=== PATIENT | male | born 1935 | race Caucasian/White ===

== ENCOUNTER 2024-03-15 15:42 | Emergency (ER) | payer OTHER, SELFPAY ==
[2024-03-15 15:44] VITALS: BP 180/96
[2024-03-15 16:23] LABS: % Basophils 0.5 % (0-2); % Eosinophils 1.1 % (0-6); % Immature Granulocytes 0.5 % (0-0.5); % Lymphocytes 25.7 % (20.5-51.1); % Monocytes 9.1 % (1.7-9.3); % Neutrophils 63.1 % (42.2-75.2); Absolute Eosinophils 0.1 10^3/uL (0-0.7); Absolute Lymphocytes 1.7 10^3/uL (1.2-3.4); Absolute Monocytes 0.6 10^3/uL (0.1-0.6); Absolute Neutrophils 4.2 10^3/uL (1.4-6.5); Hematocrit 36.1 % (39.0-52.0); Hemoglobin 11.9 g/dL (13.0-18.0); Mean Corpuscular Hgb 28.1 pg (27.0-31.0); Mean Corpuscular Volume 85.1 fL (80.0-94.0); Mean Platelet Volume 10.4 fL (7.4-10.4); Nucleated Red Blood Cells % 0 % (-); Platelet Count 235 10^3/uL (130-400); Red Blood Cell Count 4.24 10^6/uL (4.70-6.10); Red Cell Dist. Width 15.8 % (11.5-14.5); White Blood Cell Count 6.6 10^3/uL (4.8-10.8)
[2024-03-15 16:34] LABS: ALT (SGPT) 12 U/L (0-50); AST (SGOT) 21 U/L (17-59); Albumin 4.5 g/dl (3.5-5.0); Alkaline Phosphatase 111 U/L (38-126); Blood Urea Nitrogen 15 mg/dl (9-20); Calcium 9.8 mg/dl (8.4-10.2); Carbon Dioxide 27 mmol/L (22-30); Chloride 102 mmol/L (98-107); Glucose 96 mg/dl (70-99); Sodium 140 mmol/L (135-145); Total Bilirubin 0.7 mg/dl (0.2-1.3); Total Protein 7.5 g/dl (6.3-8.2); eGFR > 60.00
[2024-03-15 16:45] LABS: Troponin I < 0.012 ng/ml
[2024-03-15 16:46] LABS: Urine Albumin Trace (Neg - Trace); Urine Bilirubin Negative (Negative); Urine Character Clear (Clear); Urine Color Yellow; Urine Glucose Negative (Negative); Urine Ketone Negative (Negative); Urine Leukocyte 2+ (Negative); Urine Nitrite Positive (Negative); Urine Occult Blood Negative (Negative); Urine Specific Gravity 1.015 (<1.030); Urine Urobilinogen Negative (Neg - 1+)
[2024-03-15 17:34] LABS: Urine Bacteria Many (Negative); Urine Red Blood Cell 0-2 /HPF (0-2); Urine White Cell 16-20 /HPF (0-5)
[2024-03-15 18:38] VITALS: BP 190/90
[2024-03-15 19:10] VITALS: BMI 21.6
--- NOTE | 2024-03-15 19:11 | ED.GENMED ---
History of Present Illness
General
Chief Complaint: Abdominal Pain
Source: patient and family (Son)
Exam Limitations: none
Time Seen by Provider: 03/15/24 19:08
History of Present Illness
History of Present Illness:
This is a 88 year old male that comes in with c/o abd pain. States that he went to see the PCP today as he was having abd pain after eating all day. States that the PCP did an ECG at the office and told them he would feel better if he came in to be
evaluated. Patient states that he had a BM since he was here and not his pain is gone. States that he has been SOB. Denies any fever, chills, chest pain, nausea, vomiting, diarrhea, headache, dizziness, urinary burning.
Past History
Past History
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
ED Past Surgical History: Cardiac (Triple bypass) and Cholecystectomy
Social History
Tobacco: Former smoker
Alcohol: Occasional
Personal:
Living: with family
Review of Systems
Review of Systems
All Other Systems: ROS reviewed and negative except as documented in HPI and ROS
Constitutional: Reports no symptoms; Denies fever or chills
EENT: Reports no symptoms
Respiratory: Reports trouble breathing; Denies cough
Cardiac: Denies chest pain
ABD/GI: Reports abdominal pain; Denies nausea, vomiting or diarrhea
: Reports no symptoms; Denies dysuria, frequency or urgency
Musculoskeletal: Reports no symptoms
Skin: Reports no symptoms
Neurological: Reports no symptoms; Denies dizzy or headache
Psychiatric: Reports no symptoms
Phy Exam
General Physical Exam
General Presentation: well appearing and no apparent distress
General age: appears stated age
General Skin: warm and dry
General Habitus: elderly
General Mental: alert
General Hydration: appears well hydrated
ENT Exam
ENT Exam: TM's normal, pharynx normal and neck supple
Eye Exam
Eye Exam: EOMI
Cardiovascular Exam
Cardiovascular Exam: no edema, irregularly irregular and other (Murmur)
Pulmonary Exam
Pulmonary Exam: lungs clear, no respiratory distress, no rales, chest non tender, no crackles, no rhonchi, no wheezing and no cough
Gastrointestinal Exam
Gastrointestinal Exam: normal bowel sounds, non tender, soft, no organomegaly, no pulsatile mass and non distended
Musculoskeletal Exam
Musculoskeletal Exam: full ROM and no edema
Skin Exam
Skin Exam: normal color, warm/dry, no rash and no petechia
Psychiatric Exam
Psychiatric Exam: normal mood/affect
Course
Orders/Labs/Results
Orders:
Orders
03/15/24 15:47
Electrocardiogram (*1) Urgent
Reason for Study: Chest Pain
EKG- Treatment ONCE
03/15/24 16:02
Complete Blood Count/With Diff Urgent
Comprehensive Metabolic Panel Urgent
Lipase Urgent
Comment: ADDON
Troponin I Urgent
03/15/24 16:07
Urinalysis Reflex To Culture Urgent
Date Specimen was Collected: 03/15/24
Time Specimen was Collected: 15:56
Urine Microscopic Reflex Cult Urgent
Urine Culture Urgent
HANG Source: U
Specimen Description:
Date Specimen was Collected: 03/15/24
Time Specimen was Collected: 15:56
03/15/24 19:10
Add On- LAB Urgent
Tests Added?: Lipase
03/15/24 19:35
Cephalexin Monohydrate [Keflex] 500 mg PO NOW STA
03/15/24 19:37
CR Chest - 2 Views Urgent
Comment:
Reason For Exam: SOB
Abnormal Lab Results
03/15/24 03/15/24
16:02 16:07
RBC 4.24 L 10^6/uL
(4.70-6.10)
Hgb 11.9 L g/dL
(13.0-18.0)
Hct 36.1 L %
(39.0-52.0)
RDW 15.8 H %
(11.5-14.5)
Urine Nitrite (Reflex) Positive A
(Negative)
Leukocyte Esterase Rfl 2+ A
(Negative)
Urine WBC (Reflex) 16-20 A /HPF
(0-5)
Urine Bacteria (Reflex) Many A
(Negative)
03/15/24 16:02
03/15/24 16:02
H/H slightly low. Urine positive for infection. Troponin <0.012
Vital Signs
Initial and Last Documented VS:
Initial Vital Signs
Temp Pulse Resp BP Pulse Ox
98 F 62 16 180/96 99
03/15/24 15:44 03/15/24 15:44 03/15/24 15:44 03/15/24 15:44 03/15/24 15:44
Last Documented Vital Signs
Temp Pulse Resp BP Pulse Ox
97.5 F 70 18 165/95 98
03/15/24 18:38 03/15/24 19:13 03/15/24 19:13 03/15/24 19:13 03/15/24 19:13
MDM/Problems Addressed
Differential Diagnosis Includes:
Gastritis, UTI, Constipation
MDM/Problems Addressed:
This is a 88 year old male that comes in with c/o having upper abd discomfort since breakfast. Patient went to see the PCP and he sent him in for evaluation. Patient states that since then he had a BM and his pain is gone.
Will check labs. Chest x-ray and Urine.
Explained to patient that he dose have a UTI and he will be started on an antibiotic. Will check chest x-ray and discharge home.
Chronic conditions affecting care: CAD
Acute Exacerbation and/or Progression of Chronic Illness:
NA
*Radiology
Radiology exam reviewed: radiology read reviewed (Chest-No acute disease of the chest. )
*Pulse Oximetry
Patient hypoxic: no
*EKG
Interpreted by ED Provider?: Yes
Heart Rate: 71
Rate: normal
Rhythm: a-fib
[place]: normal axis
QRS Pattern: normal QRS
Ischemia: non-specific ST changes (V4, V4, V6)
*Pressure Steamer Tender Interpretation
Rate: Pressure Steamer Tender- N/A
*Critical Care Note
Total Time (30-74mins, 75-104mins- exclusive of procedures): Not Applicable
ED Attending Note
-
Portions of this chart may have been created with voice recognition software.� Occasional wrong word or��sound alike� substitutions may have occurred due to the inherent limitations of voice recognition software.
Discharge Plan
Departure
Patient Disposition: Home (Routine Discharge)
Date of Disposition: 03/15/24
Time of Disposition: 20:41
Patient with high blood pressure during this ER visit?: Yes
Condition: Good
Covid-19: Not Applicable
Discharge Problem:
Acute UTI (urinary tract infection)
Instructions: Urinary Tract Infection, Adult ED, BLOOD PRESSURE
Prescriptions:
New
cephalexin 500 mg capsule
500 mg PO BID 7 Days Qty: 14 0RF
No Action
losartan 50 MG tablet
50 mg PO DAILY
atorvastatin 20 MG tablet
20 mg PO DAILY
apixaban [Eliquis] 5 MG tablet
5 mg PO BID
hydralazine 50 MG tablet
50 mg PO BID
Referrals:
Beltran Pink, [Family Provider] - Call in 1-3 days for appt
Activity Restrictions/Additional Instructions:
As discussed, your urine shows that you have infection. Your chest X-ray is normal. You have been started on an antibiotic here and a prescription has been sent to your Pharmacy. Please take as directed. Please increase your water intake to 8-8oz
glasses daily. Follow up with the family doctor for recheck. IF YOU HAVE ABDOMINAL PAIN, CHEST PAIN, OR YOU HAVE ANY OTHER CONCERNS PLEASE RETURN TO THE EMERGENCY ROOM.
Interventions
Interventions:
*Risk Screen - Suicide Last Done: 03/15/24 19:11
*General Assessment Last Done: 03/15/24 19:11
*Neglect/Abuse Screening Last Done: 03/15/24 19:11
KO-Bikwar-Jjeriwwqql Assessment Last Done: 03/15/24 19:14
Discharge Date and Time
Print Language: SAMI
[2024-03-15 19:13] VITALS: BP 165/95
[2024-03-15 20:28] LABS: Lipase 134 U/L (23-300)
[2024-03-15] MEDS: KEFLEX 500 MG PO (20:51)
== END 2024-03-15 20:55 | disposition home or self-care (01) ==
LOC: EMR 15:42
PROVIDERS: Emergency Medicine; EMERGENCY PHYSICIAN Emergency Medicine; FAMILY PHYSICIAN Family Medicine
DX: N39.0 Urinary tract infection, site not specified (principal); I48.91 Unspecified atrial fibrillation; I25.10 Atherosclerotic heart disease of native coronary artery without angina pectoris; K21.9 Gastro-esophageal reflux disease without esophagitis; I10 Essential (primary) hypertension; E78.00 Pure hypercholesterolemia, unspecified; Z86.73 Personal history of transient ischemic attack (TIA), and cerebral infarction without residual deficits; Z87.891 Personal history of nicotine dependence; Z90.49 Acquired absence of other specified parts of digestive tract
CPT/HCPCS: 99283; 71046; 80053; 81003; 81015; 83690; 84484; 85025; 87086; 93005

== ENCOUNTER 2024-08-17 11:28 | Emergency (ER) | payer OTHER, SELFPAY ==
[2024-08-17 11:44] VITALS: BP 108/64
--- NOTE | 2024-08-17 12:17 | ED.GENMED ---
History of Present Illness
General
Chief Complaint: Abdominal Symptoms
Time Seen by Provider: 08/17/24 12:17
History of Present Illness
History of Present Illness:
TIME OF INITIAL ENCOUNTER: 12:20 PM
HPI: 3 days ago, the patient developed nausea, vomiting, and diarrhea. Last night he was given Lomotil. He is now somewhat improved. He never had any abdominal pain. He has not been on antibiotics recently.
EXAM:
GENERAL: Well appearing in no distress
HEENT: Slightly dry yeah oral mucosa
CARDIOVASCULAR: No murmurs, normal heart rate, regular rhythm, No chest wall tenderness
PULMONARY: No respiratory distress, breath sounds are clear and equal
ABDOMEN: Soft with no peritoneal signs, no tenderness
NEUROLOGIC: Excellent strength all extremities, no coordination deficits
PSYCHIATRIC: Appropriate mental status, normal insight and judgement
EXTREMITIES: Nontender, no edema, moves all extremities equally
SKIN: No rash, no lesions
NUMBER AND COMPLEXITY OF PROBLEMS ADDRESSED AT THE ENCOUNTER
� Chronic conditions affecting care: CAD, high blood pressure, hyperlipidemia
� Acute Exacerbation and/or Progression of Chronic Illness: This is an acute problem
� Differential Diagnosis includes: Foodborne illness, viral gastroenteritis, NNEKA, dehydration
AMOUNT AND/OR COMPLEXITY OF DATA TO BE REVIEWED AND ANALYZED
� I performed an independent evaluation of and my interpretation is:
EKG:
CT:
X-rays:
Laboratory Studies: White count is normal, hemoglobin 10.3, bicarb 21 and BUN is slightly elevated.
Other:
� Review of other/old records: I reviewed records, the patient was seen in the emergency department in February 2024 for diagnosed with a UTI (however culture showed mixed jethro)
� Clinical information was obtained by an independent historian: I spoke to son and daughter at bedside
� Prescriptions/Medications Considered but not given:
� Further testing considered but not performed: Considered CT of the abdomen pelvis however the patient has no abdominal tenderness on examination and feels excellent on reevaluation.
RISK OF COMPLICATIONS AND/OR MORBIDITY OR MORTALITY OF PATIENT MANAGEMENT
� Social determinants of health affecting care: Lives at home
� Discussion with other providers:
� Escalation of care including admission/observation vs risk of discharge considered: The patient was given a 500 mL fluid bolus. Slightly low bicarb and slightly elevated BUN suggestive of very mild dehydration. His renal
function was normal. After fluids, family happy with how he appears 'his color is back'. The patient has virtually no symptoms and is eager to go home.
ANY OTHER UPDATES:
Past History
Past History
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
ED Past Surgical History: Cardiac (Triple bypass) and Cholecystectomy
Social History
Tobacco: Former smoker
Alcohol: Occasional
Personal:
Living: with family
Phy Exam
Physical Exam
Physical Exam:
See HPI
Course
Orders/Labs/Results
Orders:
Orders
08/17/24 12:18
0.9% Sodium Chloride 500 ml [Nss] 500 ml IV BOLUS
08/17/24 12:35
Complete Blood Count/With Diff Urgent
Comprehensive Metabolic Panel Urgent
Lipase Urgent
Abnormal Lab Results
08/17/24
12:35
RBC 3.64 L 10^6/uL
(4.70-6.10)
Hgb 10.3 L g/dL
(13.0-18.0)
Hct 31.6 L %
(39.0-52.0)
MCHC 32.6 L g/dL
(33.0-37.0)
RDW 16.3 H %
(11.5-14.5)
MPV 11.0 H fL
(7.4-10.4)
Absolute Lymphs (auto) 0.8 L 10^3/uL
(1.2-3.4)
Immature Gran % 0.6 H %
(0-0.5)
Lymphocytes % 15.8 L %
(20.5-51.1)
Carbon Dioxide 21 L mmol/L
(22-30)
BUN 29 H mg/dl
(9-20)
08/17/24 12:35
08/17/24 12:35
Vital Signs
Initial and Last Documented VS:
Initial Vital Signs
Temp Pulse Resp BP Pulse Ox
36.3 C 84 18 108/64 100
08/17/24 11:44 08/17/24 11:44 08/17/24 11:44 08/17/24 11:44 08/17/24 11:44
Last Documented Vital Signs
Temp Pulse Resp BP Pulse Ox
36.3 C 78 16 137/79 99
08/17/24 11:44 08/17/24 12:45 08/17/24 12:30 08/17/24 13:00 08/17/24 13:30
*Critical Care Note
Total Time (30-74mins, 75-104mins- exclusive of procedures): Not Applicable
ED Attending Note
-
Portions of this chart may have been created with voice recognition software.� Occasional wrong word or��sound alike� substitutions may have occurred due to the inherent limitations of voice recognition software.
Discharge Plan
Departure
Patient Disposition: Home (Routine Discharge)
Date of Disposition: 08/17/24
Time of Disposition: 13:56
Patient with high blood pressure during this ER visit?: Yes
Discharge Problem:
Nausea, vomiting, and diarrhea
Instructions: Nausea and Vomiting, Adult (DC)
Prescriptions:
No Action
losartan 50 MG tablet
50 mg PO DAILY
atorvastatin 20 MG tablet
20 mg PO DAILY
apixaban [Eliquis] 5 MG tablet
5 mg PO BID
hydralazine 50 MG tablet
50 mg PO BID
cephalexin 500 mg capsule
500 mg PO BID 7 Days Qty: 14 0RF
Referrals:
Joesph Sanders, DO [Family Provider] -
Activity Restrictions/Additional Instructions:
The cause of your symptoms is unclear but could be related to a foodborne illness or a viral gastroenteritis. You have no tenderness on examination and your white blood cell count is normal. Your liver and pancreas numbers were normal. Your
bicarbonate level is just slightly low and your BUN is slightly high which can be seen with some degree of dehydration. We did give you some IV fluids here. Return here if worse or other concerns.
Interventions
Interventions:
*Risk Screen - Suicide Last Done: 08/17/24 11:44
*General Assessment Last Done: 08/17/24 11:44
*Neglect/Abuse Screening Last Done: 08/17/24 11:44
*ED- Fall Risk Assessment Last Done: 08/17/24 12:35
*ED COVID-19 Vaccine History Last Done: 08/17/24 12:35
IH-Dgggsh-Fsjnyfljjt Assessment Last Done: 08/17/24 12:35
Discharge Date and Time
Print Language: MOLDOVAN
[2024-08-17 12:36] VITALS: BP 137/76
[2024-08-17] MEDS: NSS 500 IV (12:39)
[2024-08-17 12:52] LABS: % Basophils 0.2 % (0-2); % Immature Granulocytes 0.6 % (0-0.5); % Lymphocytes 15.8 % (20.5-51.1); % Monocytes 8.3 % (1.7-9.3); % Neutrophils 75.1 % (42.2-75.2); Absolute Lymphocytes 0.8 10^3/uL (1.2-3.4); Absolute Monocytes 0.4 10^3/uL (0.1-0.6); Hematocrit 31.6 % (39.0-52.0); Hemoglobin 10.3 g/dL (13.0-18.0); Mean Corp Hgb Conc. 32.6 g/dL (33.0-37.0); Mean Corpuscular Hgb 28.3 pg (27.0-31.0); Mean Corpuscular Volume 86.8 fL (80.0-94.0); Nucleated Red Blood Cells % 0 % (-); Platelet Count 194 10^3/uL (130-400); Red Blood Cell Count 3.64 10^6/uL (4.70-6.10); Red Cell Dist. Width 16.3 % (11.5-14.5); White Blood Cell Count 5.3 10^3/uL (4.8-10.8)
[2024-08-17 13:00] VITALS: BP 137/79
[2024-08-17 13:14] LABS: ALT (SGPT) 11 U/L (0-50); AST (SGOT) 19 U/L (17-59); Albumin 3.6 g/dl (3.5-5.0); Alkaline Phosphatase 80 U/L (38-126); Blood Urea Nitrogen 29 mg/dl (9-20); Carbon Dioxide 21 mmol/L (22-30); Chloride 104 mmol/L (98-107); Glucose 93 mg/dl (70-99); Lipase 53 U/L (23-300); Potassium 3.6 mmol/L (3.5-5.1); Sodium 135 mmol/L (135-145); Total Bilirubin 0.6 mg/dl (0.2-1.3); Total Protein 6.4 g/dl (6.3-8.2); eGFR > 60.00
== END 2024-08-17 14:07 | disposition home or self-care (01) ==
LOC: EMR 11:28
PROVIDERS: EMERGENCY PHYSICIAN Emergency Medicine; FAMILY PHYSICIAN Family Medicine
DX: R11.2 Nausea with vomiting, unspecified (principal); R19.7 Diarrhea, unspecified; E78.00 Pure hypercholesterolemia, unspecified; I10 Essential (primary) hypertension; I25.10 Atherosclerotic heart disease of native coronary artery without angina pectoris; Z86.73 Personal history of transient ischemic attack (TIA), and cerebral infarction without residual deficits; Z87.891 Personal history of nicotine dependence; Z90.49 Acquired absence of other specified parts of digestive tract
CPT/HCPCS: 99284; 96360; 80053; 83690; 85025

== ENCOUNTER → 2024-09-07 12:26 | Outpatient (REF) | payer OTHER, SELFPAY | LOC: HWRAD 12:26 | PROVIDERS: ATTENDING PHYSICIAN Family Medicine | DX: M54.50 Low back pain, unspecified (principal) | CPT/HCPCS: 72110; 72190 ==

== ENCOUNTER 2024-12-09 15:33 | Inpatient (IN) | payer OTHER, SELFPAY ==
[2024-12-09] VITALS (9 sets, daily range): BP systolic 119–187; BP diastolic 64–93; BMI 20.7; BMI 19.8
[2024-12-09 12:28] LABS: Hematocrit 25.4 % (39.0-52.0); Hemoglobin 8.3 g/dL (13.0-18.0); Mean Corp Hgb Conc. 32.7 g/dL (33.0-37.0); Mean Corpuscular Volume 79.1 fL (80.0-94.0); Nucleated Red Blood Cells % 0 % (-); Platelet Count 286 10^3/uL (130-400); Red Cell Dist. Width 18.3 % (11.5-14.5)
--- NOTE | 2024-12-09 12:38 | ED.GENMED ---
History of Present Illness
General
Chief Complaint: Breathing Problem
Source: patient
Time Seen by Provider: 12/09/24 12:26
History of Present Illness
History of Present Illness:
89-year-old male presents to the emergency room complaining of shortness of breath. Patient has developed the shortness of breath over the course the past 3 or 4 days. He does have a mild cough. Patient had a recent hospitalization to [facility] where he had '5 infections' at the same time. He was then referred to [facility] for acute rehab. He was discharged from acute rehab doing fairly well until the past couple days. He has significant shortness of breath with
exertion. No fever.
Past History
Past History
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
ED Past Surgical History: Cardiac (Triple bypass) and Cholecystectomy
Social History
Tobacco: Former smoker
Alcohol: Occasional
Personal:
Living: with family
Phy Exam
Physical Exam
Physical Exam:
General: Awake, Alert, Oriented X3. Appears chronically ill, cachectic
Vitals: unremarkable
Head: Atraumatic
Eyes: Pupils equal, EOMI
Throat: Airway intact, no exudates
Neck: Trachea midline
Lungs: Decreased breath sounds throughout
Heart: Regular rate, 3/6 systolic ejection murmurs
Abd: Soft, Nontender, No pulsatile mass
Neuro: Nonfocal
Skin: Warm, dry, no rash
Extremities: pulses equal b/l, no edema
Scores
Heart Failure Risk
Heart Failure Risk Score: Yes
History of Stroke or TIA: No
History of intubation for respiratory distress: No
Heart rate on ED arrival >/= 110: No
SaO2 <90% on arrival on room air: Yes
HR >/=110 during 3min walk test (or too ill to perform test): No
ECG has acute ischemic changes: No
Urea >/=12mmol/L (BUN 33.6mg/dL): No
Serum CO2>/=35mmol/L: No
Troponin I or T elevated to [place] Level (0.4mg/dL): No
NT-proBNP >/=5,000ng/L (5,000pg/ml): Yes
HF Risk Score: 2
Admission Status: MEDIUM RISK 9.2% Consider observation or discharge to home with homecare & f/u visit to PCP/Home Theater Specialist, or SNF for treatment
Course
Orders/Labs/Results
Orders:
Orders
12/09/24 12:11
EKG [Electrocardiogram (*1)] Urgent
Reason for Study: Shortness of Breath
EKG- Treatment ONCE
12/09/24 12:19
Chest [CR Chest - 2 Views ] Urgent
Comment:
Reason For Exam: SOB/COUGH
12/09/24 12:20
CBC/With Diff [Complete Blood Count/With Diff] Urgent
CMP [Comprehensive Metabolic Panel] Urgent
12/09/24 12:37
Add On- LAB Urgent
Tests Added?: bnp, troponin
12/09/24 12:57
NT-proBNP Routine
Comment: ADD ON
Troponin I Routine
12/09/24 14:24
Ampicillin/Sulbactam 3 G [Unasyn] 3 gm 0.9% Sodium Chloride 100 ml [Nss] 100 ml IV NOW
12/09/24 14:30
Blood Culture Q30M
HANG Source: Blood/Venous
Specimen Description:
Blood Culture Q30M
HANG Source: Blood/Venous
Specimen Description:
12/09/24 Dinner
Cholesterol Lowering
At Your Request: Limited Participation
Fluid Restriction: 1440 mL/day (48 oz)
Cholesterol Lowering: Sodium, 2 Gram
12/09/24 15:12
Furosemide [Lasix] 40 mg IV NOW STA
12/09/24 15:15
COVID-19 Antigen Urgent
Source: Nasal Swab
12/09/24 15:20
Ampicillin/Sulbactam 3 G [Unasyn] 3 gm 0.9% Sodium Chloride 100 ml [Nss] 100 ml IV NOW
12/09/24 15:24
Admit/Transfer Patient As Directed
Co-Sign Provider:
Level of Care: Inpatient admission
Assign to:: Telemetry
Physician / Group: Kyung Quigley
Diagnosis: pneumonia, heart failure exacerbation
Reason for Telemetry: Pulmonary Edema
Date to Stop Telemetry: 12/12/24
Time to Stop Telemetry: 11:00
Reason for Hospitalization: pneumonia, heart failure exacerbation
Expected length of stay greater than two midnights?: Yes
ELOS- Estimated Length of Stay in days: 3
I certify the patient meets the requirements for IP care: Yes
PRN Pain Medication Management As Directed
May give lesser potent ordered pain med per pt: Yes
preference::
Protocol:: Medication orders for pain may be administered in a
manner that supports deferring to patient preference
when the pt is:
- Requesting an ordered lesser potent pain medication.
Least to most potent pain medications are defined
as: acetaminophen < NSAID < tramadol < opioids
(morphine, oxycodone, hydromorphone).
- Requesting a lesser dose of the same medication IF
ORDERED.
- Requesting a less intrusive route of administration
if both routes are prescribed by the provider (PO <
IV).
12/09/24 15:25
Code Status As Directed
Resuscitation Status: Do not resuscitate
Reached after discussion with pt or family/Healthcare POA: Yes
12/09/24 15:26
DNR Bracelet Application ONCE
12/09/24 16:59
Echo 2D MMode Color/Doppler Routine
Reason for Study: heart failure
CARDIOLOGY CONSULT Routine
Consulting Provider: Aamir Alfaro
Was physician already notified: Yes
HF DIETARY CONSULT Routine
HF EDUCATOR CONSULT Routine
Comment:
Activity As Directed
Activity Level: As Tolerated
Intake/ Output As Directed
Frequency: Per unit guidelines
Patient Education As Directed
Type: CHF folder
Comment: give on admission. Document in Interdisciplinary Education record
Sleep Apnea Assessment by RN As Directed
Comment:
Physician Instructions:
Vital Signs As Directed
Frequency: Other
Additional Instructions:: Q12 or per unit guidelines if more frequent.
Weight As Directed
Frequency: Daily
Type of Scale: Standing Scale
Comment: Daily morning weight. If unable to stand, use balanced bed scale.
Weight As Directed
Frequency: Once
Type of Scale: Standing Scale
Comment: Upon Admission. If unable to stand, use balanced bed scale.
Acapella [Rx Pep / Acapela] [RESP] Routine
Pulse Ox/cont/shift [RESP] Routine
Quantity: 1
Special Instructions: Daily pulse oximetry at rest. If greater than 92% at rest also obtain pulse oximetry
while ambulating as tolerated.
Pt Eval And Treat Routine
Activity Level: As Tolerated
Speech Therapy Eval & Treat Routine
12/09/24 18:00
Atorvastatin [Lipitor] 20 mg PO QPM
12/09/24 18:37
Troponin I Q6H
Comment: at admission & every 6 hours x 2 (3 total), ECG to be done with each level
12/09/24 20:00
Apixaban [Eliquis] 5 mg PO BID
Guaifenesin [Mucinex] 600 mg PO Q12
HydrALAZINE [Apresoline] 50 mg PO BID
12/09/24 21:00
Ampicillin/Sulbactam 3 G [Unasyn] 3 gm 0.9% Sodium Chloride 100 ml [Nss] 100 ml IV Q6H
12/09/24 22:00
Quetiapine Fumarate [Seroquel] 25 mg PO HS
12/10/24 00:31
Troponin I Q6H
Comment: at admission & every 6 hours x 2 (3 total), ECG to be done with each level
12/10/24 04:54
Basic Metabolic Panel IN AM
Cardiovascular Evaluation IN AM
Complete Blood Count/No Diff IN AM
Magnesium IN AM
TSH Reflex To Free T4 IN AM
12/10/24 07:00
Pantoprazole [Protonix] 40 mg PO DAILY AT 0700
12/10/24 08:00
Furosemide [Lasix] 40 mg IV DAILY
Losartan [Cozaar] 50 mg PO DAILY
Metoprolol Xl [Toprol Xl] 25 mg PO DAILY
12/11/24 06:00
Basic Metabolic Panel IN AM
12/12/24 06:00
Basic Metabolic Panel IN AM
12/12/24 11:00
DC Protocol for Telemetry ONCE
Abnormal Lab Results
12/09/24 12/09/24
12:20 12:57
RBC 3.21 L 10^6/uL
(4.70-6.10)
Hgb 8.3 L g/dL
(13.0-18.0)
Hct 25.4 L %
(39.0-52.0)
MCV 79.1 L fL
(80.0-94.0)
MCH 25.9 L pg
(27.0-31.0)
MCHC 32.7 L g/dL
(33.0-37.0)
RDW 18.3 H %
(11.5-14.5)
MPV 11.7 H fL
(7.4-10.4)
Lymphocytes % 16.4 L %
(20.5-51.1)
Sodium 130 L mmol/L
(135-145)
Carbon Dioxide 19 L mmol/L
(22-30)
BUN 26 H mg/dl
(9-20)
Troponin I 0.085 H* ng/ml
Total Protein 6.1 L g/dl
(6.3-8.2)
Albumin 3.4 L g/dl
(3.5-5.0)
12/09/24 12:20
12/09/24 12:20
Vital Signs
Initial and Last Documented VS:
Initial Vital Signs
Pulse Resp BP Pulse Ox
63 16 145/73 91
12/09/24 12:11 12/09/24 12:11 12/09/24 12:11 12/09/24 12:11
Last Documented Vital Signs
Temp Pulse Resp BP Pulse Ox
98.2 F 56 18 86/51 95
12/10/24 11:00 12/10/24 11:00 12/10/24 11:00 12/10/24 11:00 12/10/24 11:00
MDM/Problems Addressed
Differential Diagnosis Includes:
Pneumonia, heart failure, symptomatic anemia
MDM/Problems Addressed:
Patient presents with cough, shortness of breath. Recently hospitalized. Cough is productive. Workup here reveals A-fib with bradycardic rhythm. Abnormal chest x-ray consistent with bilateral lower lobe injury. Patient requires IV antibiotics
and hospitalization for supplemental oxygen. Patient given antibiotics for possible aspiration pneumonia.
Chronic conditions affecting care: HTN and Arrhythmia (Atrial fibrillation)
*Radiology
Radiology exam reviewed: preliminary read by ED provider (Bilateral lower lobe infiltrates as well as some cephalization)
*Pulse Oximetry
SaO2: 91
Nasal Cannula flow liters per minute: 2
Patient hypoxic: yes
*EKG
Interpreted by ED Provider?: Yes
Interpretation: abnormal
Heart Rate: 55
Rate: bradycardiac
Rhythm: a-fib
Interval: normal interval
QRS Pattern: normal QRS
Ischemia: non-specific ST changes
*Weatherstrip Machine Operator Interpretation
Rate: bradycardiac
Interpretation: abnormal
Rhythm: a-fib
*Critical Care Note
Total Time (30-74mins, 75-104mins- exclusive of procedures): Not Applicable
ED Attending Note
-
Portions of this chart may have been created with voice recognition software.� Occasional wrong word or��sound alike� substitutions may have occurred due to the inherent limitations of voice recognition software.
Discharge Plan
Departure
Patient Disposition: Admit
Date of Disposition: 12/09/24
Time of Disposition: 14:27
Admit to: Med/Surg
Presentation/result/management discussed w/ accepting MD/DO: Hospitalist
Condition: Fair
Discharge Problem:
Pneumonia, Hypoxia
Interventions
Interventions:
*Risk Screen - Suicide Last Done: 12/09/24 12:12
*General Assessment Last Done: 12/09/24 12:12
*Neglect/Abuse Screening Last Done: 12/09/24 12:12
*ED- Fall Risk Assessment Last Done: 12/09/24 12:12
*ED COVID-19 Vaccine History Last Done: 12/09/24 17:14
*Nursing Disposition Last Done: 12/09/24 16:55
ED- Cardiac Assessment Last Done: 12/09/24 12:17
ED- Pulmonary Assessment Last Done: 12/09/24 12:17
Discharge Date and Time
Discharge Date/Time: 12/09/24 16:58
[2024-12-09 12:53] LABS: ALT (SGPT) 19 U/L (0-50); AST (SGOT) 20 U/L (17-59); Albumin 3.4 g/dl (3.5-5.0); Alkaline Phosphatase 86 U/L (38-126); Blood Urea Nitrogen 26 mg/dl (9-20); Calcium 9.2 mg/dl (8.4-10.2); Carbon Dioxide 19 mmol/L (22-30); Chloride 104 mmol/L (98-107); Estimated Creatinine Clearance 43 ml/min; Glucose 97 mg/dl (70-99); Potassium 4.4 mmol/L (3.5-5.1); Sodium 130 mmol/L (135-145); Total Protein 6.1 g/dl (6.3-8.2); eGFR > 60.00
[2024-12-09 13:46] LABS: Troponin I 0.085 ng/ml
--- NOTE | 2024-12-09 14:56 | HPS.HSE ---
Family Physician
-
Family Physician: Beltran Pink,
Chief Complaint
-
shortness of breath
History of Present Illness
Mr. Juan Severino is a 89 yo man with hx atrial fibrillation, CVA, CAD s/p remote CABG, (has refused intervention), GERD, HTN, HLD who presents to the ER with shortness of breath. Patient was recently hospitalized at [facility] for
pneumonia, UTI complicated by C. Diff infection and then sent to [facility] [facility] for acute rehab. He was discharged to home last week.
Patient is interviewed with family at bedside. Shortness of breath has been progressive over past several days. His mobility is limited since last hospitalization and legs remain very weak. He denies fever. He has had increased cough and
congestion. He denies chest pain. He has had increased swelling in his lower extremities.
No nausea/vomiting. BM are now more formed. No abdominal pain. No rash.
Medical History
Past Medical History
Past Medical History: Reports Other (atrial fibrillation, CVA, CAD s/p remote CABG, (has refused intervention), GERD, HTN, HLD)
Past Surgical History: Reports Cardiac (remote CABG)
Social History
Tobacco: Former Smoker
Alcohol: None
Family History
Family History: Not pertinent
Allergies / Home Medications
Allergies reflects when Allergies were last updated in [facility].
Home Medications with original date entered in [facility]
Allergy/Medication List:
Allergies
Allergy/AdvReac Type Severity Reaction Status Date / Time
No Known Allergies Allergy Verified 12/09/24 15:13
Home Medications
apixaban 5 mg tablet (Eliquis) 5 mg PO BID Blood clot prevention/tx 05/26/19
atorvastatin 20 mg tablet 20 mg PO DAILY High cholesterol 05/26/19
losartan 50 mg tablet 50 mg PO DAILY Blood pressure 05/26/19
hydralazine 50 mg tablet 50 mg PO BID Blood pressure 10/18/21
cephalexin 500 mg capsule 500 mg PO BID Urinary issue 7 days #14 caps 03/15/24
metoprolol succinate 25 mg tablet,extended release 24 hr 25 mg PO DAILY 12/09/24
omeprazole 40 mg capsule,delayed release 40 mg PO DAILY 12/09/24
quetiapine 25 mg tablet 25 - 50 mg PO HS PRN sleep 12/09/24
Review of Systems
-
History Source: Patient
A 12 point ROS was completed and negative except as noted: Yes
Physical Exam
Vital Signs
Vital Signs
Pulse Resp BP Pulse Ox
61 14 179/84 99
12/09/24 14:45 12/09/24 14:45 12/09/24 14:00 12/09/24 14:45
Physical Exam
General: No Apparent Distress and Conversant
HEENT: PERRLA
Respiratory: Rales and Rhonchi; No Wheezes
Cardiac: S1/S2, Regular Rhythm and JVD
GI: Soft and Non Tender
Musculoskeletal: Other (1+ pitting edema equal bilaterally )
Skin: Warm and Dry; No Rash
Neuro: AO x 3
Psych: Calm
Laboratory Results
-
12/09/24 12:20
12/09/24 12:20
Laboratory Results
Total Bilirubin 1.2 mg/dl (0.2-1.3) 12/09/24 12:20
AST 20 U/L (17-59) 12/09/24 12:20
ALT 19 U/L (0-50) 12/09/24 12:20
Alkaline Phosphatase 86 U/L (38-126) 12/09/24 12:20
Troponin I 0.085 ng/ml H* 12/09/24 12:57
Data Reviewed
-
Diagnostic Radiology: Report Reviewed by me
Lab Data: Labs Reviewed by me
Impression/Plan
-
Mr. Juan Severino is a 89 yo man with hx atrial fibrillation, CVA, CAD s/p remote CABG, (has refused intervention), GERD, HTN, HLD who presents to the ER with shortness of breath. Patient was recently hospitalized at [facility] for
pneumonia, UTI complicated by C. Diff infection and then sent to [facility] for acute rehab. He was discharged to home last week. He appears fluid overloaded on exam with elevated JVP. CXR shows pneumonia. He will be admitted for treatment of
pneumonia and heart failure exacerbation.
Triage VS: P 63, RR 16, BP 145/73, SpO2 91%
LABS: WBC 7.1, Hg 8.3, PLT 286, Na 130, K+ 4.4, Cl 104, CO2 19, BUn 26, Cr 1.0, liver enzymes WNL, Trop 0.085, BNP 56348
CXR
IMPRESSION:
Pneumonia in the lung bases.
MAR: IV Unasyn
Shortness of breath
Heart Failure Exacerbation, unknown EF
Aortic Stenosis
-per daughter, patient with known that he has refused intervention on for years
-will admit to telemetry
-Lasix 40mg IV x 1 now, monitor response and order daily
-TTE
-strict I/O, daily weights
-Cardiology consult
Community Acquired Pneumonia, possible concern for aspiration
-continue IV Unasyn, anticipate 5 day course abx
-speech consult
-mucinex BID, acapella
Atrial Fibrillation
-OCCUPATIONAL HEALTH PHYSICIAN Eliquis, Metoprolol
CVA
-OCCUPATIONAL HEALTH PHYSICIAN Eliquis/Statin
GERD - OCCUPATIONAL HEALTH PHYSICIAN PPI
Essential HTN
-OCCUPATIONAL HEALTH PHYSICIAN Hydralazine, Metoprolol
HLD
-OCCUPATIONAL HEALTH PHYSICIAN Statin
DVT PPx - Eliquis
DNR - discussed on admission
76 minutes spent on patient care
[2024-12-09] MEDS: LASIX 40 MG IV (15:28)
[2024-12-09 15:33] LABS: COVID-19 Antigen Negative (Negative)
--- NOTE | 2024-12-09 15:41 | CON.CAR ---
Consultation
Consultation Request
Date/Time Consultation Requested: 12/09/2024 at 1340
Date/Time Consultation Performed: 12/09/2024 at 1400
Requesting Provider: Dr. Kyung Quigley
Performing Provider: Dr. Aamir Alfaro
Reason for Consultation: Heart failure/pneumonia
Medical History
-
Chief Complaint: Shortness of breath
History of Present Illness:
89-year-old man with remote CABG, recently seen by [facility] cardiology for severe aortic stenosis. Cardiac catheterization was scheduled and then canceled by the patient, who does not wish to have his valve intervened upon. He is followed by Dr. Howard.
Over the last 2 or 3 days, he has developed dyspnea on exertion. He denies chest pain, cough, fevers. Upon presentation felt to have bilateral basilar pneumonia on the chest x-ray. proBNP is 20,400. Now admitted for what is presumed to be
multifactorial dyspnea.
Past Medical History
Past Medical History: Arrhythmias (Probably persistent/permanent atrial fibrillation), CAD (History of CABG), CVA, GERD, HTN, Hypercholesterolemia and Valvular Disease (Severe aortic stenosis)
Past Surgical History: Cardiac (History of CABG)
Social History
Tobacco: Former Smoker
Alcohol: Occasional
Drug: None
Personal:
Living: With Family
Employment: Retired
Family History
Family History: Reviewed & Not Pertinent
Allergies / Home Medications
Allergy/AdvReac Type Severity Reaction Status Date / Time
No Known Allergies Allergy Verified 12/09/24 15:13
�Medication �Instructions �Recorded �Confirmed �Type
apixaban 5 mg tablet (Eliquis) 5 mg PO BID Blood clot 05/26/19 12/09/24 History
prevention/tx
atorvastatin 20 mg tablet 20 mg PO HS High cholesterol 05/26/19 12/09/24 History
losartan 50 mg tablet 50 mg PO HS Blood pressure 05/26/19 12/09/24 History
hydralazine 50 mg tablet 50 mg PO BID Blood pressure 10/18/21 12/09/24 History
acetaminophen 500 mg tablet 500 mg PO DAILYPRN PRN earache 12/09/24 12/09/24 History
metoprolol succinate 25 mg 25 mg PO DAILY 12/09/24 12/09/24 History
tablet,extended release 24 hr
omeprazole 40 mg capsule,delayed 40 mg PO DAILY 12/09/24 12/09/24 History
release
quetiapine 25 mg tablet 50 mg PO HSPRN PRN sleep 12/09/24 12/09/24 History
Review of Systems
-
All other systems: Negative unless noted
Physical Exam
Vital Signs
Temp Pulse Resp BP Pulse Ox
36.4 C 67 20 152/93 97
12/09/24 15:14 12/09/24 15:28 12/09/24 15:07 12/09/24 15:28 12/09/24 15:07
Lab Results
12/09/24 12:20
12/09/24 12:20
Troponin I 0.085 ng/ml H* 12/09/24 12:57
Bny-E-Wdvhdkeypap Pept 62084 pg/ml 12/09/24 12:57
Physical Exam
General: No Apparent Distress, Comfortable and Other (Slender)
HEENT: Normocephalic
Respiratory: Other (Diminished in bases)
Cardiac: Irregular Rhythm and Murmur (3/6 aortic stenosis murmur)
GI: Soft and Non Tender
Musculoskeletal: No Cyanosis and No Edema
Skin: Warm and Dry
Neuro: AO x 3
Psych: Calm
Impression / Plan
-
Impression:
Multifactorial dyspnea
Pneumonia
Acute HFpEF
Severe aortic stenosis
Permanent atrial fibrillation
History of CABG
CVA by records
GERD
Hypertension
Hypercholesterolemia
Echo July 2024: Normal LV, EF 55-60%, indeterminate diastolic function, normal RV, dilated left atrium severely dilated right atrium, Aortic valve 3.6 m/s, mean gradient 34, valve area 0.5 cm 2, mild MR
Plan:
He presents with multifactorial dyspnea presumably related to heart failure and pneumonia. He has severe aortic stenosis but can still mount a hypertensive blood pressure response despite an aggressive antihypertensive regimen. This may imply that
his aortic stenosis is not yet critical.
He is steadfast in his decision that he does not want to proceed with TAVR. He says 'I want to '
Will treat with IV furosemide, treatment of pneumonia per hospitalist team.
Repeat echocardiography.
Decrease Eliquis based on age and body weight.
We will continue to follow.
Data Reviewed
-
EKG: Tracing Personally Visualized and interpreted (Atrial fibrillation, relatively slow ventricular response, poor R wave progression/possible anterior MS, nonspecific T wave changes, A-fib likely permanent)
Radiology: Image Personally Visualized and interpreted (Bibasilar infiltrates)
Medical Tests (Nuc Med, Echo etc): Report Reviewed by me
Labs: Labs Reviewed by me (Hemoglobin 8.3, MCV is 79.1, platelets are 286, sodium is 130, BUN/creatinine are 26 and 1.0, troponin is 0.085, proBNP is 20,400)
[2024-12-09] MEDS: UNASYN IV ×2 (16:05→21:28)
--- NOTE | 2024-12-09 16:14 | CM ---
CM reviewed chart and met with pt bedside in ED. I gerson spoke to his daughter Margaret over the phone.
Pt lives with his in [place] apt at [facility] in [place]. Pt states in the summer he stays in [place], [place]
Had recent admit to [facility] and was sent to [facility] for STR afterward.
Pt independent in ADLs and personal care, per daughter has been very unsteady on feet over past several weeks, needs to use walker for ambulation. Also has WC, having toilet rails installed this week and having shower chair delivered.
Per daughter pt is current with [facility], VN came last week and supposed to start PT/OT.
PCP: Beltran Pink
Pharmacy: [facility]
Discharge plan: Anticipate home with [facility], [facility]HA will continue to follow for discharge planning needs
[2024-12-09] MEDS: LIPITOR 20 MG PO (18:13)
[2024-12-09 19:13] LABS: Troponin I 0.096 ng/ml
--- NOTE | 2024-12-09 19:35 | PTCARENOTE ---
Pt arrived at aprox 1700 from ED. Pt admitted for CHF/PNA. Pt AAOx3 but forgetful and [place]. Bed alarm placed for safety. Admission and assessment completed. Pt appears to have an old healing sacral wound. No open areas. Silicone border applied,
waffle cushion. Pts vitals stable. Afib on monitor. Pt with no c/o of pain. Will order dinner. Son at bedside.
[2024-12-09] MEDS: ELIQUIS 2.5 MG PO (20:21)
[2024-12-09] MEDS: MUCINEX 600 MG PO (20:21)
[2024-12-09] MEDS: APRESOLINE 50 MG PO (20:21)
[2024-12-09] MEDS: SEROQUEL 25 MG PO (21:28)
[2024-12-10] VITALS (8 sets, daily range): BP systolic 86–156; BP diastolic 43–85; PULSE 62; O2SAT 98; BMI 19.1
[2024-12-10 01:05] LABS: Troponin I 0.123 ng/ml
[2024-12-10] MEDS: UNASYN IV ×4 (03:21→20:24)
[2024-12-10 05:05] LABS: Hematocrit 29.3 % (39.0-52.0); Hemoglobin 9.5 g/dL (13.0-18.0); Mean Corp Hgb Conc. 32.4 g/dL (33.0-37.0); Mean Corpuscular Volume 79.8 fL (80.0-94.0); Platelet Count 299 10^3/uL (130-400); Red Cell Dist. Width 18.1 % (11.5-14.5)
[2024-12-10 05:30] LABS: Blood Urea Nitrogen 25 mg/dl (9-20); Calcium 9.2 mg/dl (8.4-10.2); Carbon Dioxide 22 mmol/L (22-30); Chloride 105 mmol/L (98-107); Estimated Creatinine Clearance 46 ml/min; Glucose 101 mg/dl (70-99); HDL Cholesterol 37 mg/dl; LDL Cholesterol, Calculated 60 mg/dl; Magnesium 1.7 mg/dl (1.6-2.3); Potassium 3.4 mmol/L (3.5-5.1); Sodium 133 mmol/L (135-145); Very Low Density Lipoprotein 20 mg/dl (0-30); eGFR > 60.00
[2024-12-10 05:41] LABS: Troponin I 0.117 ng/ml
[2024-12-10] MEDS: PROTONIX 40 MG PO (08:39)
[2024-12-10] MEDS: ELIQUIS 2.5 MG PO ×2 (08:39→20:25)
[2024-12-10] MEDS: TOPROL XL 25 MG PO (08:39)
[2024-12-10] MEDS: COZAAR 50 MG PO (08:40)
[2024-12-10] MEDS: APRESOLINE 50 MG PO (08:40)
[2024-12-10] MEDS: MUCINEX 600 MG PO ×2 (08:40→20:25)
[2024-12-10] MEDS: LASIX 40 MG IV (08:40)
--- NOTE | 2024-12-10 08:44 | PTOTSP ---
Speech Pathology
Clinical Swallow Evaluation
89M with admission for PNA and heart failure exacerbation p/w a functional oropharyngeal swallow. Aspiration risk increased in the presence of current PNA (likely community acquired), tenuous respiratory status, and CVA and GERD hx. Unable to r/o
silent aspiration at bedside this date.
Recommend:
1. Regular textures (IDDSI 7), thin liquids
2. Meds as best tolerated
3. Strategies: Single sips, small bites, alternate bites and sips to help with excess oral residue
4. CANDLE MOLDER MACHINE service to follow up re: to ensure diet tolerance given increased aspiration risk due to current PNA. If concern for aspiration arises, consider VSE to r/o silent aspiration.
--- NOTE | 2024-12-10 10:47 | W.PN.HOSP.TC ---
Addendum entered and electronically signed by Kyung Quigley MD 12/13/24 06:59:
Hypokalemia
-repleted
Original Note:
Today's Communication/Plan
-
Unasyn
IV Lasix
appreciate Cardiology
UA, start flomax; monitor need for kingsley (straight cath protocol)
Assessment / Plan
Assessment / Plan
Mr. Juan Severino is a 89 yo man with hx atrial fibrillation, CVA, CAD s/p remote CABG, (has refused intervention), GERD, HTN, HLD who presents to the ER with shortness of breath. Patient was recently hospitalized at [facility] for
pneumonia, UTI complicated by C. Diff infection and then sent to [place] for acute rehab. He was discharged to home last week. He appears fluid overloaded on exam with elevated JVP. CXR shows pneumonia. He will be admitted for treatment of
pneumonia and heart failure exacerbation.
CXR
IMPRESSION:
Pneumonia in the lung bases.
Shortness of breath
Heart Failure Exacerbation, unknown EF
Aortic Stenosis
-per daughter, patient with known that he has refused intervention on for years
-will admit to telemetry
-Lasix 40mg IV daily
-TTE tomorrow
-strict I/O, daily weights
-Cardiology consult appreciated
Community Acquired Pneumonia
-continue IV Unasyn, anticipate 5 day course abx (day 2)
-speech consult appreciated
-mucinex BID, acapella
Urinary retention in setting of lasix
-bladder scan with straight cath protocol
-follow up UA and start Flomax
Atrial Fibrillation
-LATHE PULLER Eliquis, Metoprolol
CVA
-LATHE PULLER Eliquis/Statin
GERD - LATHE PULLER PPI
Essential HTN
-LATHE PULLER Hydralazine, Metoprolol
HLD
-LATHE PULLER Statin
DVT PPx - Eliquis
DNR - discussed on admission
51 minutes spent on patient care
Anticipated Discharge: 24 - 48 hours
Subjective/Interval History
-
Date of Service: December 10, 2024
feeling better today
breathing improved
some difficulty urinating
Objective Data
-
Labs:
Laboratory Results
12/10/24
04:54
WBC 8.4
Hgb 9.5 L
Hct 29.3 L
Plt Count 299
Sodium 133 L
Potassium 3.4 L
Chloride 105
Carbon Dioxide 22
BUN 25 H
Creatinine 0.9
Glucose 101 H
Calcium 9.2
Vital Signs:
Vital Signs
Temp Pulse Resp BP Pulse Ox
97.9 F 62 19 143/66 95
12/10/24 07:00 12/10/24 08:40 12/10/24 07:00 12/10/24 08:40 12/10/24 10:11
I&O
12/09/24 12/10/24 12/11/24
06:59 06:59 06:59
Intake Total 120 / 120
Output Total 1300 / 1300
Balance -1180 / -1180
Review of Systems
-
History Source: Patient
All other systems: Reviewed and negative
Physical Exam
-
General: No Apparent Distress
HEENT: PERRLA
Cardiac: Regular Rhythm, S1/S2, Murmur and JVD
Musculoskeletal: No Edema
Skin: Warm and Dry; Negative Rash
Neuro: AO x 3
Psych: Calm
Data Reviewed
-
Diagnostic Radiology: Report Reviewed by me
Labs: Labs Reviewed by me
[2024-12-10] MEDS: FLOMAX 0.4 MG PO (11:19)
[2024-12-10] MEDS: KCL 40 MEQ PO (11:19)
[2024-12-10 11:40] LABS: Urine Character Clear (Clear)
[2024-12-10 11:51] LABS: Urine Red Blood Cell 16-20 /HPF (0-2); Urine Squamous Cell 0-2 /LPF (Few); Urine White Cell 0-2 /HPF (0-5)
[2024-12-10] MEDS: MAGNESIUM SULFATE 100 IV (12:59)
--- NOTE | 2024-12-10 14:31 | W.PN.CARDCBS ---
Today's Communication / Plan
-
Change furosemide to 20 mg by mouth daily starting tomorrow
Hold hydralazine tonight and reduce to 25 mg twice daily starting tomorrow, watch for hypotension
Stop metoprolol
Antibiotics per primary service
Discharge planning
Impression / Plan
-
Impression:
Multifactorial dyspnea
Pneumonia
Acute HFpEF
Severe aortic stenosis
Permanent atrial fibrillation
History of CABG
CVA by records
GERD
Hypertension
Hypercholesterolemia
Echo July 2024: Normal LV, EF 55-60%, indeterminate diastolic function, normal RV, dilated left atrium severely dilated right atrium, Aortic valve 3.6 m/s, mean gradient 34, valve area 0.5 cm 2, mild MR
Plan:
Overall he looks reasonably well but there are a couple of concerns.
From a heart failure standpoint he is considerably improved, and in fact hypotensive after receiving IV furosemide. Will stop IV furosemide 40 mg daily and start 20 mg by mouth tomorrow. He was not on a diuretic at admission. proBNP was around
20,000.
Regarding atrial fibrillation he is bradycardic. Will stop metoprolol.
Given his aortic stenosis, concerns regarding excessive reduction in blood pressure. Will hold hydralazine tonight and reduce from 50 mg twice daily to 25 mg twice daily. In addition metoprolol now discontinued. Still on losartan.
Check echo in a.m. to reassess aortic stenosis. He is indicated he does not want to intervene on his aortic valve.
No plans to pursue mildly elevated troponin, which is nonmyocardial infarction myocardial injury from multifactorial dyspnea/CHF.
Eliquis has been reduced given age and body weight.
Progress Note - Mottler Machine Feeder
Subjective
Date of Service: December 10, 2024:
89-year-old man with remote CABG, recently seen by [facility] cardiology for severe aortic stenosis. Cardiac catheterization was scheduled and then canceled by the patient, who does not wish to have his valve intervened upon. He is followed by Dr. Howard.
Over the last 2 or 3 days, he has developed dyspnea on exertion. He denies chest pain, cough, fevers. Upon presentation felt to have bilateral basilar pneumonia on the chest x-ray. proBNP is 20,400. Now admitted for what is presumed to be
multifactorial dyspnea.
Current meds: Atorvastatin 20 mg a day, hydralazine 50 mg twice daily, losartan 50 mg daily, metoprolol succinate 25 mg daily, pantoprazole 40 mg daily, Seroquel, Unasyn, furosemide 40 mg IV daily, Mucinex, apixaban 2.5 twice daily and tamsulosin
0.4 mg daily
86/51, had been 143/66, pulse in the 50s to 60s, weight is 55.4 kg, if accurate down 4.6 kg since admission, no distress, son at bedside, lungs are clear, aortic stenosis murmur, bradycardic, no edema, got 40 mg of IV Lasix this morning
Hemoglobin is 9.5, Had been 8.3, was 10.3 in July, troponin is 0.117, stable, BUN/creatinine are 25 and 0.9, potassium is 3.4, sodium is 133, 2+ blood in the urine, with few bacteria or white cells, proBNP was 20,400 on admission
Objective
Labs:
12/10/24 04:54
12/10/24 04:54
Labs
Hgb 9.5 g/dL (13.0-18.0) L 12/10/24 04:54
Hct 29.3 % (39.0-52.0) L 12/10/24 04:54
Plt Count 299 10^3/uL (130-400) 12/10/24 04:54
Sodium 133 mmol/L (135-145) L 12/10/24 04:54
Potassium 3.4 mmol/L (3.5-5.1) L 12/10/24 04:54
BUN 25 mg/dl (9-20) H 12/10/24 04:54
Creatinine 0.9 mg/dL (0.7-1.3) 12/10/24 04:54
Glucose 101 mg/dl (70-99) H 12/10/24 04:54
Troponins
12/09/24 12/09/24 12/10/24
12:57 18:37 00:31
Troponin I 0.085 H* 0.096 H* 0.123 H* D
12/10/24
04:54
Troponin I 0.117 H*
Vital Signs and I&O:
Vital Signs
Temp Pulse Resp BP Pulse Ox
36.8 C 56 18 86/51 95
12/10/24 11:00 12/10/24 11:00 12/10/24 11:00 12/10/24 11:00 12/10/24 11:00
Vital Signs
Temp Pulse Resp BP Pulse Ox
36.8 C 56 18 86/51 95
12/10/24 11:00 12/10/24 11:00 12/10/24 11:00 12/10/24 11:00 12/10/24 11:00
Intake & Output
12/08/24 12/09/24 12/10/24 12/11/24
07:59 07:59 07:59 07:59
Intake Total 120 / 120
Output Total 1300 / 1300 2140 / 2140
Balance -1180 / -1180 -2140 / -2140
Physical Exam
Physical Exam
See above
[2024-12-10] MEDS: LIPITOR 20 MG PO (17:11)
--- NOTE | 2024-12-10 18:21 | W.PN.UPDATE ---
Update Note
Progress Note Update
patient's blood pressure lower this afternoon. IV lasix changed to oral tomorrow
Hydral dose lowered per Cardiology with hold parameters in place
Losartan listed as taking in evenings now on home med list. I will make this change so he will not be due for next Losartan dose until tomorrow evening.
[2024-12-10] MEDS: SEROQUEL 25 MG PO (21:17)
[2024-12-11] VITALS (8 sets, daily range): BP systolic 91–121; BP diastolic 43–65; BMI 19.4
[2024-12-11] MEDS: UNASYN IV ×3 (02:49→14:30)
[2024-12-11] MEDS: PROTONIX 40 MG PO (05:53)
[2024-12-11 06:58] LABS: Blood Urea Nitrogen 24 mg/dl (9-20); Calcium 8.8 mg/dl (8.4-10.2); Carbon Dioxide 24 mmol/L (22-30); Chloride 107 mmol/L (98-107); Estimated Creatinine Clearance 37 ml/min; Glucose 82 mg/dl (70-99); Magnesium 2.0 mg/dl (1.6-2.3); Potassium 3.6 mmol/L (3.5-5.1); Sodium 134 mmol/L (135-145); eGFR > 60.00
[2024-12-11] MEDS: ELIQUIS 2.5 MG PO ×2 (09:16→21:46)
[2024-12-11] MEDS: FLOMAX 0.4 MG PO (09:16)
[2024-12-11] MEDS: MUCINEX 600 MG PO ×2 (09:16→21:41)
[2024-12-11] MEDS: LASIX 20 MG PO (09:16)
--- NOTE | 2024-12-11 11:58 | PN.CDI ---
CDI
- -
CDI:
Physician Documentation Request
Admit Date: 12/09/24 15:33
Dear Doctor Soraida,
Patient admitted for heart failure.
12/10 Potassium level: 3.4
12/10 Potassium chloride 40 meq PO administered
Based on the above, could you clarify in the progress notes, the appropriate diagnosis, if significant, that supports the above abnormalities and additional evaluation, monitoring and/or treatment rendered:
Hypokalemia
Abnormal lab value insignificant
Other
Use of terms such as suspected, likely, concern for, or probable (associated with a specific diagnosis that is being evaluated, monitored, or treated as if it exists) are acceptable and can be coded in the inpatient setting, when documented at the
time of discharge.
Thank you,
Joanie Legih RN, BSN
CDI Specialist
Available via [facility] text
Please use your independent medical judgment in providing your response.
--- NOTE | 2024-12-11 14:11 | W.PN.HOSP.TC ---
Addendum entered and electronically signed by Sergio Olea DO 12/12/24 13:15:
Additional diagnosis:
- Hyponatremia, mild chronic, now resolved
Original Note:
Today's Communication/Plan
-
Assessment / Plan
Assessment / Plan
General: No Apparent Distress, Comfortable and Conversant
HEENT: NormoCephalic, Moist mucous membranes, Atraumatic
Respiratory: Clear and Non Labored Respirations
Cardiac: S1/S2 and Regular Rhythm; 2/6 systolic murmur
GI: Soft, Non Tender, Non Distended and Normal Bowel Sounds
Musculoskeletal: No Edema, no deformity
: NO Noland
Neuro: Awake, Alert, Nonfocal/grossly intact
Psych: Calm and cooperative
Mr. Juan Severino is a 89 yo man with hx atrial fibrillation, CVA, CAD s/p remote CABG, (has refused intervention), GERD, HTN, HLD who presents to the ER with shortness of breath. Patient was recently hospitalized at [facility] for
pneumonia, UTI complicated by C. Diff infection and then sent to [place] for acute rehab. He was discharged to home last week. He appears fluid overloaded on exam with elevated JVP. CXR shows pneumonia. He has been admitted for treatment of
pneumonia and heart failure exacerbation.
CXR
IMPRESSION:
Pneumonia in the lung bases.
Shortness of breath
Heart Failure Exacerbation, unknown EF
Aortic Stenosis
- per daughter, patient with known that he has refused intervention on for years
- Continue telemetry
- Received a dose of IV Lasix with symptomatic improvement, will continue with low-dose p.o. Lasix, was not on diuretic at home
- TTE pending
- Afterload reduction with losartan 50 mg at night and hydralazine 25 mg p.o. twice daily
- Discontinued beta-shilo due to bradycardia
- strict I/O, daily weights
- Cardiology following
Community Acquired Pneumonia
- Switch IV Unasyn to p.o. today 12/11, anticipate 5 day course abx (day 3)
-speech consult appreciated, no overt evidence of aspiration
-mucinex BID, acapella
Urinary retention in setting of lasix
-bladder scan with straight cath protocol, continues to retain urine and so Noland catheter has been placed
- Continue on Flomax which was started this admission
Atrial Fibrillation
- Discontinued home metoprolol due to bradycardia
- Continue anticoagulation with Eliquis
CVA
-TROPHY ASSEMBLER Eliquis/Statin
GERD - TROPHY ASSEMBLER PPI
Essential HTN
- Continue home hydralazine and losartan
HLD
-TROPHY ASSEMBLER Statin
DVT PPx - Eliquis
DNR - discussed on admission
40 minutes spent on patient care
Anticipated Discharge: 24 - 48 hours
Subjective/Interval History
-
Date of Service: December 11, 2024
Patient was seen and examined at bedside this morning. Feeling well and less swollen. Still retaining urine and may require Noland catheter.
Objective Data
-
Labs:
Laboratory Results
12/11/24
06:04
Sodium 134 L
Potassium 3.6
Chloride 107
Carbon Dioxide 24
BUN 24 H
Creatinine 1.1
Glucose 82
Calcium 8.8
Vital Signs:
Vital Signs
Temp Pulse Resp BP Pulse Ox
97.7 F 60 16 101/46 97
12/11/24 11:40 12/11/24 13:05 12/11/24 11:40 12/11/24 13:05 12/11/24 11:40
I&O
12/10/24 12/11/24 12/12/24
06:59 06:59 06:59
Intake Total 120 / 120 1500 / 1500
Output Total 1300 / 1300 2840 / 2840
Balance -1180 / -1180 -1340 / -1340
Review of Systems
-
History Source: Patient
All other systems: Reviewed and negative
Physical Exam
-
General: No Apparent Distress
--- NOTE | 2024-12-11 14:57 | PTCARENOTE ---
Attempted to place kingsley cath for acute retention and the pt was screaming out in pain. Will make MD aware.
--- NOTE | 2024-12-11 15:22 | W.PN.CARDCBS ---
Addendum entered and electronically signed by Jaylen Rodriguez MD 12/11/24 15:53:
I saw and examined the patient.
The [employer]ICATED [employer]ION[employer] DRIVER or PA's note was reviewed and I agree with the note.
Comment: General: Sleeping at present
Discussed with patient's and son in detail. Stable cardiology status. Will sign off, call with questions.
Original Note:
Today's Communication / Plan
-
Due to restart losartan tonight
Hydralazine on hold
Toprol XL stopped yesterday
Eliquis dose lowered based on weight and age
Impression / Plan
-
PCP: Dr. Beltran Pink
Card: Dr. Renzo Cortez
Impression:
Multifactorial dyspnea
Pneumonia
Acute HFpEF
Severe aortic stenosis
Permanent atrial fibrillation
History of CABG
CVA by records
GERD
Hypertension
Hypercholesterolemia
Echo July 2024: Normal LV, EF 55-60%, indeterminate diastolic function, normal RV, dilated left atrium severely dilated right atrium, Aortic valve 3.6 m/s, mean gradient 34, valve area 0.5 cm 2, mild MR
Echo 12/11/2024: Study pending
Plan:
-Weight is down at least 3 lbs since admission. Patient initially diuresed with Lasix 40 mg IV daily and now transition to Lasix 20 mg PO daily. Patient was not taking a diuretic prior to admission
-Echo 07/2024 showed preserved EF of 55 to 60% with severe
-Patient was previously evaluated by Dr. Almodovar in the [facility] cardiology office, but patient was not interested in following through with dental extractions, felt to be cost prohibitive, and so TAVR evaluation deferred. He is a DNR.
Patient is now following with Dr. Cortez
-Hypotension noted on 12/10/2024 and outpatient dose of hydralazine was decreased to 25 mg BID, but is now on hold due to ongoing hypotension
-Outpatient dose of losartan 50 mg HS is ordered to start on the night of 12/11/2024
-Outpatient dose of Toprol XL 25 mg daily is on hold has been stopped due to hypotension and bradycardia
-Patient with known permanent A-fib and overall rates are controlled and he is bradycardic at times with Toprol-XL being stopped as noted above
-Outpatient dose of Eliquis decreased to 2.5 mg BID this admission due to age 89, Cre 1.1 and wt 56 kg
Progress Note - Safety Trainer
Subjective
Date of Service: December 11, 2024
He feels well, less bloated
Objective
Labs:
12/10/24 04:54
12/11/24 06:04
Labs
Hgb 9.5 g/dL (13.0-18.0) L 12/10/24 04:54
Hct 29.3 % (39.0-52.0) L 12/10/24 04:54
Plt Count 299 10^3/uL (130-400) 12/10/24 04:54
Sodium 134 mmol/L (135-145) L 12/11/24 06:04
Potassium 3.6 mmol/L (3.5-5.1) 12/11/24 06:04
BUN 24 mg/dl (9-20) H 12/11/24 06:04
Creatinine 1.1 mg/dL (0.7-1.3) 12/11/24 06:04
Glucose 82 mg/dl (70-99) 12/11/24 06:04
Troponins
12/09/24 12/09/24 12/10/24
12:57 18:37 00:31
Troponin I 0.085 H* 0.096 H* 0.123 H* D
12/10/24
04:54
Troponin I 0.117 H*
Vital Signs and I&O:
Vital Signs
Temp Pulse Resp BP Pulse Ox
97.7 F 60 16 101/46 97
12/11/24 11:40 12/11/24 13:05 12/11/24 11:40 12/11/24 13:05 12/11/24 11:40
Vital Signs
Temp Pulse Resp BP Pulse Ox
97.7 F 60 16 101/46 97
12/11/24 11:40 12/11/24 13:05 12/11/24 11:40 12/11/24 13:05 12/11/24 11:40
Intake & Output
12/09/24 12/10/24 12/11/24 12/12/24
06:59 06:59 06:59 06:59
Intake Total 120 / 120 1500 / 1500
Output Total 1300 / 1300 2840 / 2840
Balance -1180 / -1180 -1340 / -1340
Physical Exam
Physical Exam
GEN: AAOx3
LUNGS: RA
CV: Afib on tele
--- NOTE | 2024-12-11 15:48 | CONS.URO ---
Consultation
-
Date/Time Consultation Performed: 12/11/2024 1605
Performing Provider: Zhou
Reason for Consultation: Noland placement/AUR
Medical History
History of Present Illness
89 yo male admitted via ED on 12/09/24 for SOB.
Straight catheterized twice for AUR; per report, nurse experienced difficulty attempting to place Noland, prompting urology consultation.
pt reports no antecedent history
Past Medical History
Past Medical History: Other (Arrhythmias (atrial fibrillation), CAD , CVA, GERD, HTN, Hypercholesterolemia and Severe aortic stenosis)
Past Surgical History: Other (CABG)
Allergies/Home Medications
Allergies
Allergy/AdvReac Type Severity Reaction Status Date / Time
No Known Allergies Allergy Verified 12/09/24 15:13
Home Medications
�Medication �Instructions �Recorded �Confirmed �Type
apixaban 5 mg tablet (Eliquis) 5 mg PO BID Blood clot 05/26/19 12/09/24 History
prevention/tx
atorvastatin 20 mg tablet 20 mg PO HS High cholesterol 05/26/19 12/09/24 History
losartan 50 mg tablet 50 mg PO HS Blood pressure 05/26/19 12/09/24 History
hydralazine 50 mg tablet 50 mg PO BID Blood pressure 10/18/21 12/09/24 History
acetaminophen 500 mg tablet 500 mg PO DAILYPRN PRN earache 12/09/24 12/09/24 History
metoprolol succinate 25 mg 25 mg PO DAILY Blood Pressure 12/09/24 12/09/24 History
tablet,extended release 24 hr
omeprazole 40 mg capsule,delayed 40 mg PO DAILY GERD 12/09/24 12/09/24 History
release
quetiapine 25 mg tablet 50 mg PO HSPRN PRN sleep 12/09/24 12/09/24 History
Physical Exam
Vital Signs
Vital Signs
Temp Pulse Resp BP Pulse Ox
97.7 F 60 16 101/46 97
12/11/24 11:40 12/11/24 13:05 12/11/24 11:40 12/11/24 13:05 12/11/24 11:40
Lab / Testing Results
Laboratory Results
12/10/24 04:54
12/11/24 06:04
Physical Exam
elderly male supine in bed
General: No Apparent Distress
Genito-urinary: Other (attempting to void in hand-held urinal w/o success)
Assessment / Plan
-
AUR/difficult Noland
Procedure:
with oral consent obtained, phallus prepped, Lidocaine gel instilled, 16 Fr Noland passed with return of urine
balloon inflated
affixed to right thigh
Keep Noland while in diuretic phase
--- NOTE | 2024-12-11 16:21 | CM ---
Patient seen at bedside with daughter Margaret
Resides at [facility] independent Living with
PT rec home PT vs SNF
Patient daughter states will speak with siblings regarding dispo
daughter discussing with Coni Prajapati about personal care
Current with [facility], recent dc from [facility] 12/02
PLAN: SNF vs. home PT
[2024-12-11] MEDS: LIPITOR 20 MG PO (17:17)
[2024-12-11] MEDS: AUGMENTIN 875 MG/125 MG 1 TABLET PO (21:41)
[2024-12-11] MEDS: COZAAR PO ×2 (21:46→23:43)
[2024-12-11] MEDS: SEROQUEL 25 MG PO (21:46)
[2024-12-12 03:00] VITALS: BP 125/65
[2024-12-12 05:41] VITALS: BMI 19.3
[2024-12-12] MEDS: PROTONIX 40 MG PO (06:00)
[2024-12-12 07:40] LABS: Blood Urea Nitrogen 18 mg/dl (9-20); Calcium 8.4 mg/dl (8.4-10.2); Carbon Dioxide 23 mmol/L (22-30); Chloride 107 mmol/L (98-107); Estimated Creatinine Clearance 45 ml/min; Glucose 90 mg/dl (70-99); Potassium 3.4 mmol/L (3.5-5.1); Sodium 135 mmol/L (135-145); eGFR > 60.00
[2024-12-12 07:55] VITALS: BP 133/68
[2024-12-12] MEDS: KCL 40 MEQ PO (08:15)
[2024-12-12] MEDS: AUGMENTIN 875 MG/125 MG 1 TABLET PO ×2 (08:16→21:33)
[2024-12-12] MEDS: ELIQUIS 2.5 MG PO ×2 (08:16→21:33)
[2024-12-12] MEDS: FLOMAX 0.4 MG PO (08:16)
[2024-12-12] MEDS: LASIX 20 MG PO (08:16)
[2024-12-12] MEDS: MUCINEX 600 MG PO ×2 (08:16→21:33)
--- NOTE | 2024-12-12 10:18 | PN.CDI ---
CDI
- -
CDI:
Physician Documentation Request
Admit Date: 12/09/24 15:33
Dear Doctor Emmie,
Patient admitted for heart failure exacerbation.
Laboratory Tests
12/09/24 12/10/24 12/11/24
12:20 04:54 06:04
Sodium 130 L 133 L 134 L
Based on the above, could you clarify in the progress notes, the appropriate diagnosis, if significant, that supports the above abnormalities and additional evaluation, monitoring and/or treatment rendered:
Hyponatremia
Abnormal lab value insignificant
Other
Use of terms such as suspected, likely, concern for, or probable (associated with a specific diagnosis that is being evaluated, monitored, or treated as if it exists) are acceptable and can be coded in the inpatient setting, when documented at the
time of discharge.
Thank you,
Joanie Leigh RN, BSN
CDI Specialist
Available via Trout text
Please use your independent medical judgment in providing your response.
[2024-12-12 11:40] VITALS: BP 110/51
--- NOTE | 2024-12-12 14:10 | W.PN.HOSP.TC ---
Today's Communication/Plan
-
Assessment / Plan
Assessment / Plan
General: No Apparent Distress, Comfortable and Conversant
HEENT: NormoCephalic, Moist mucous membranes, Atraumatic
Respiratory: Clear and Non Labored Respirations
Cardiac: S1/S2 and Regular Rhythm; 2/6 systolic murmur
GI: Soft, Non Tender, Non Distended and Normal Bowel Sounds
Musculoskeletal: No Edema, no deformity
: Noland in place draining clear yellow urine
Neuro: Awake, Alert, Nonfocal/grossly intact
Psych: Calm and cooperative
Mr. Juan Severino is a 89 yo man with hx atrial fibrillation, CVA, CAD s/p remote CABG, (has refused intervention), GERD, HTN, HLD who presents to the ER with shortness of breath. Patient was recently hospitalized at [facility] for
pneumonia, UTI complicated by C. Diff infection and then sent to [place] for acute rehab. He was discharged to home last week. He appears fluid overloaded on exam with elevated JVP. CXR shows pneumonia. He has been admitted for treatment of
pneumonia and heart failure exacerbation.
Shortness of breath
Heart Failure Exacerbation, unknown EF
Aortic Stenosis
- per daughter, patient with known that he has refused intervention on for years
- Received a dose of IV Lasix with symptomatic improvement, will continue with low-dose p.o. Lasix, was not on diuretic at home
- Afterload reduction with losartan 50 mg at night, holding hydralazine 25 mg p.o. for now
- Discontinued beta-shilo due to bradycardia
- Medically stable for discharge, SNF versus home with home health
Community Acquired Pneumonia
- Switched IV Unasyn to p.o. 12/11, anticipate 5 day course abx (day 4)
-speech consult appreciated, no overt evidence of aspiration
-mucinex BID, acapella
Urinary retention
-bladder scan with straight cath protocol, continued to retain urine and so Noland catheter was placed by urology on 12/11
- Continue on Flomax which was started this admission
- Outpatient urology follow-up
Atrial Fibrillation
- Discontinued home metoprolol due to bradycardia
- Continue anticoagulation with Eliquis
CVA
-RN TRAVELING Eliquis/Statin
GERD - RN TRAVELING PPI
Essential HTN
- Continue home losartan, holding hydralazine
HLD
-RN TRAVELING Statin
DVT PPx - Eliquis
DNR - discussed on admission
40 minutes spent on patient care
Anticipated Discharge: Within 24 hours
Subjective/Interval History
-
Date of Service: December 12, 2024
Patient was seen and examined at bedside this morning. Noland placed yesterday due to urinary retention. Patient is currently comfortable. On oral antibiotics and eagerly awaiting discharge.
Objective Data
-
Labs:
Laboratory Results
12/12/24
06:24
Sodium 135
Potassium 3.4 L
Chloride 107
Carbon Dioxide 23
BUN 18
Creatinine 0.9
Glucose 90
Calcium 8.4
Vital Signs:
Vital Signs
Temp Pulse Resp BP Pulse Ox
97.8 F 64 16 110/51 99
12/12/24 11:40 12/12/24 11:40 12/12/24 11:40 12/12/24 11:40 12/12/24 11:40
I&O
12/11/24 12/12/24 12/13/24
06:59 06:59 06:59
Intake Total 1500 / 1500 700 / 700
Output Total 2840 / 2840 1150 / 1150
Balance -1340 / -1340 -450 / -450
Review of Systems
-
History Source: Patient
All other systems: Reviewed and negative
Physical Exam
-
General: No Apparent Distress
[2024-12-12 15:00] VITALS: BP 128/60
--- NOTE | 2024-12-12 15:01 | CM ---
Addendum entered by Nohemi Gustafson 12/12/24 17:29:
Plan is for skilled placement, referrals sent to [facility] and [facility].
Original Note:
Chart reviewed and patient needs updated physical therapy notes, if skilled is recommended will make referrals to [facility].
Plan; Await Updated PT notes.
[2024-12-12 15:54] VITALS: BP 121/66; PULSE 72; O2SAT 97
[2024-12-12] MEDS: LIPITOR 20 MG PO (17:06)
[2024-12-12] MEDS: SEROQUEL 25 MG PO (21:33)
[2024-12-12] MEDS: COZAAR 50 MG PO (21:34)
[2024-12-12 23:31] VITALS: BP 115/65
[2024-12-13 05:57] VITALS: BMI 19.6
[2024-12-13 07:00] VITALS: BP 148/76
--- NOTE | 2024-12-13 07:11 | W.PN.URO.CBU ---
Today's Communication / Plan
-
remove Noland during early AM when patient is OOB and medically stabilized
Assessment / Plan
-
stable/good urine output
Diagnosis
-
Date of Service: December 13, 2024
-
Patient Diagnosis:
Urinary Retention
Difficult Noland placement
Subjective
-
comfortable with Noland
Objective
-
Vital Signs
Temp Pulse Resp BP Pulse Ox
98.6 F 72 16 115/65 95
12/12/24 23:31 12/12/24 23:31 12/12/24 23:31 12/12/24 23:31 12/12/24 23:31
Intake and Output
12/12/24 12/13/24 12/14/24
06:59 06:59 06:59
Intake Total 700 / 700 840 / 840
Output Total 1150 / 1150 1575 / 1575
Balance -450 / -450 -735 / -735
Intake:
Oral fluids 700 / 700 840 / 840
Output:
Urine, Noland 1150 / 1150 1575 / 1575
Laboratory Results
12/10/24 04:54
12/12/24 06:24
Physical Exam
-
General - no acute distress
Genitalia - Noland draining urine
[2024-12-13] MEDS: MUCINEX 600 MG PO ×2 (07:41→20:32)
[2024-12-13] MEDS: PROTONIX 40 MG PO (07:41)
[2024-12-13] MEDS: FLOMAX 0.4 MG PO (07:41)
[2024-12-13] MEDS: LASIX 20 MG PO (07:41)
[2024-12-13] MEDS: ELIQUIS 2.5 MG PO ×2 (07:41→20:32)
[2024-12-13] MEDS: AUGMENTIN 875 MG/125 MG 1 TABLET PO ×2 (07:47→20:31)
--- NOTE | 2024-12-13 11:00 | HFEDUCATE ---
89 yo male admitted with pneumonia and HF exacerbation. Past medical history includes Acute HFpEF, severe , permanent A-fib. severe , H/O CABG, CVA, GERD, hypertension and Hypercholesteremia. Current ejection fraction by echocardiogram is
55-60%. He lives at [facility] independent living with his , plan is for shelter after discharge. He reports following a low sodium diet and a 48oz fluid restriction per day. He has a scale but does not weigh himself daily.
I provided HF education to Juan and his son, Kelechi. I discussed the usual lifestyle recommendations. I advised he continue to follow a low sodium diet of 3400-2327 mg. per day, and limit it to 500-750 mg. per meal. I advised a 48oz fluid
restriction per day and discussed ways to achieve the recommendations. I also advised him to weigh himself daily and to monitor for any slight weight gain. I explained how to monitor for exacerbations. We discussed other alarming symptoms to watch
for and when to notify his provider. We discussed need for medications.
Recommendations:
Continue all HF recommended medications as ordered on discharge.
Limit sodium intake to <500-750 mg per meal.
Limit fluid intake to <48 oz per day.
Daily weights and contact provider for any weight gain >3lbs in one day or 5lbs in one week.
Follow up with provider as recommended.
--- NOTE | 2024-12-13 13:34 | W.PN.HOSP.TC ---
Today's Communication/Plan
-
Assessment / Plan
Assessment / Plan
General: No Apparent Distress, Comfortable and Conversant
HEENT: NormoCephalic, Moist mucous membranes, Atraumatic
Respiratory: Clear and Non Labored Respirations
Cardiac: S1/S2 and Regular Rhythm; 2/6 systolic murmur
GI: Soft, Non Tender, Non Distended and Normal Bowel Sounds
Musculoskeletal: No Edema, no deformity
: Noland in place draining clear yellow urine
Neuro: Awake, Alert, Nonfocal/grossly intact
Psych: Calm and cooperative
Mr. Juan Severino is a 89 yo man with hx atrial fibrillation, CVA, CAD s/p remote CABG, (has refused intervention), GERD, HTN, HLD who presents to the ER with shortness of breath. Patient was recently hospitalized at [facility] for
pneumonia, UTI complicated by C. Diff infection and then sent to [place] for acute rehab. He was discharged to home last week. He appears fluid overloaded on exam with elevated JVP. CXR shows pneumonia. He has been admitted for treatment of
pneumonia and heart failure exacerbation.
Shortness of breath
Heart Failure Exacerbation, unknown EF
Aortic Stenosis
- per daughter, patient with known that he has refused intervention on for years
- Received a dose of IV Lasix with symptomatic improvement, will continue with low-dose p.o. Lasix, was not on diuretic at home
- Afterload reduction with losartan 50 mg at night, holding hydralazine 25 mg p.o. indefinitely
- Discontinued beta-shilo due to bradycardia
- Medically stable for discharge, SNF arrangements pending
Community Acquired Pneumonia
- Switched IV Unasyn to p.o. 12/11, completing a 5 day course abx today 12/13
-speech consult appreciated, no overt evidence of aspiration
-mucinex BID, acapella
Urinary retention
-bladder scan with straight cath protocol, continued to retain urine and so Noland catheter was placed by urology on 12/11
- Continue on Flomax which was started this admission
- Outpatient urology follow-up
Atrial Fibrillation
- Discontinued home metoprolol due to bradycardia
- Continue anticoagulation with Eliquis
CVA
-FISH SEINER Eliquis/Statin
GERD - FISH SEINER PPI
Essential HTN
- Continue home losartan, holding hydralazine
HLD
-FISH SEINER Statin
DVT PPx - Eliquis
DNR - discussed on admission
40 minutes spent on patient care
Anticipated Discharge: 24 - 48 hours
Subjective/Interval History
-
Date of Service: December 13, 2024
Patient was seen and examined at bedside this morning. Comfortable. Awaiting SNF placement.
Objective Data
-
Vital Signs:
Vital Signs
Temp Pulse Resp BP Pulse Ox
97.9 F 80 17 148/76 97
12/13/24 07:00 12/13/24 07:00 12/13/24 07:00 12/13/24 07:00 12/13/24 07:00
I&O
12/12/24 12/13/24 12/14/24
06:59 06:59 06:59
Intake Total 700 / 700 840 / 840
Output Total 1150 / 1150 1575 / 1575
Balance -450 / -450 -735 / -735
Review of Systems
-
History Source: Patient
All other systems: Reviewed and negative
Physical Exam
-
General: No Apparent Distress
--- NOTE | 2024-12-13 14:41 | CM ---
Addendum entered by Nohemi Gustafson 12/13/24 17:11:
Auth is pending for [facility] Ref # [id number], clinical faxed to [phone].
Addendum entered by Nohemi Gustafson 12/13/24 16:46:
Patient's son has selected [facility], insurance contacted for Auth.
Original Note:
corporate tax manager reached out to patient's son, Stefan candelario am and patient's son made aware the patient has been accepted at [facility] and [facility], patient's insurance is out of net work with [facility].
Plan; Waiting on final decision from patient's son on [facility] or [facility]. Patient will need Auth for skilled placement.
[2024-12-13 15:00] VITALS: BP 111/65
[2024-12-13] MEDS: LIPITOR 20 MG PO (17:13)
--- NOTE | 2024-12-13 18:28 | PTCARENOTE ---
pts [facility] removed [id number] bladder scan for 360, encourage fluids and BSC
[2024-12-13] MEDS: COZAAR 50 MG PO (21:35)
[2024-12-13] MEDS: SEROQUEL 25 MG PO (21:36)
[2024-12-13 21:37] VITALS: BP 118/59
[2024-12-13 23:46] VITALS: BP 131/64
[2024-12-14] MEDS: PROTONIX 40 MG PO (06:26)
[2024-12-14 06:28] VITALS: BMI 18.7
[2024-12-14 07:47] VITALS: BP 130/61
--- NOTE | 2024-12-14 08:35 | CM ---
Addendum entered by Nohemi Gustafson 12/14/24 14:20:
Patient has been approved for 5 days skilled placement at [facility] today, Auth received from [facility], 12/14 to 12/18, Auth [id number], Ref # [id number], phone # [phone] . Patient needs w/c van transport to [facility].
[facility]
Report [phone]

Original Note:
Patient has been accepted at [facility] nursing [facility], waiting on Auth from insurance all clinicals faxed yesterday.
Plan; Skilled placement at [facility] pending Auth from insurance.
[2024-12-14] MEDS: FLOMAX 0.4 MG PO (08:40)
[2024-12-14] MEDS: ELIQUIS 2.5 MG PO (08:40)
[2024-12-14] MEDS: MUCINEX 600 MG PO (08:40)
[2024-12-14] MEDS: LASIX 20 MG PO (08:40)
--- NOTE | 2024-12-14 13:12 | W.DCSUMMARY ---
Discharge Summary
Discharge Data
Date of Admission: 12/09/24
Date of Discharge: 12/14/24
Total time spent discharging patient (in min): 40
-
Pending Results: No
Hospital Course
Mr. Juan Severino is an 89-year-old male with medical history of atrial fibrillation, CVA, CAD s/p remote CABG, (has declined intervention), GERD, and HTN who presented to the ER with shortness of breath. Patient was recently hospitalized at [facility] for pneumonia, UTI complicated by C. Diff infection and then sent to [place] for acute rehab. He was discharged to home 1 week prior to arrival. He appeared fluid overloaded on exam with elevated JVP. Chest x-ray
showed pneumonia. He was admitted for treatment of pneumonia and heart failure exacerbation.
He diuresed adequately with 1 dose of IV Lasix and significant symptomatic improvement. He was then switched to oral Lasix. He is not on a diuretic at home. He developed acute urinary retention requiring Noland catheter placement by urology and
was started on tamsulosin. He was initially treated with IV antibiotics which were later transitioned to oral antibiotics to complete a total 5-day course. His evaluated by speech and language pathology who felt there was no overt evidence of
aspiration. He did not require supplemental oxygen. His home metoprolol was discontinued due to persistent bradycardia. He was continued on his home Eliquis for anticoagulation in the setting of atrial fibrillation. However his Eliquis dose was
reduced to 2.5 mg twice daily considering age greater than 80 and weight less than 60 kg. His home losartan was continued but his hydralazine was discontinued to avoid hypotension. His blood pressure was well-controlled with losartan alone. He
would benefit from ongoing therapy at a custodial facility after hospital discharge which is being arranged. He will be discharged with his Noland catheter in place. He will need to follow-up with urology in the outpatient office for a
monitored voiding trial. He will also need follow-up with his primary care physician for ongoing management. At the time of hospital discharge he was medically stable.
General: No Apparent Distress, Comfortable and Conversant
HEENT: NormoCephalic, Moist mucous membranes, Atraumatic
Respiratory: Clear and Non Labored Respirations
Cardiac: S1/S2 and Regular Rhythm; 2/6 systolic murmur
GI: Soft, Non Tender, Non Distended and Normal Bowel Sounds
Musculoskeletal: No Edema, no deformity
: Noland in place draining clear yellow urine
Neuro: Awake, Alert, Nonfocal/grossly intact
Psych: Calm and cooperative
Discharge Plan
-
Patient Disposition: Group Home/SNF
Discharge Diagnosis/Procedures: Acute HFpEF, community-acquired pneumonia, acute urinary retention
Activity: As tolerated
Activity Restrictions/Additional Instructions:
Mr. Juan Severino is an 89-year-old male with medical history of atrial fibrillation, CVA, CAD s/p remote CABG, (has declined intervention), GERD, and HTN who presented to the ER with shortness of breath. Patient was recently hospitalized at [facility] for pneumonia, UTI complicated by C. Diff infection and then sent to [facility] for acute rehab. He was discharged to home 1 week prior to arrival. He appeared fluid overloaded on exam with elevated JVP. Chest x-ray
showed pneumonia. He was admitted for treatment of pneumonia and heart failure exacerbation.
He diuresed adequately with 1 dose of IV Lasix and significant symptomatic improvement. He was then switched to oral Lasix. He is not on a diuretic at home. He developed acute urinary retention requiring Noland catheter placement by urology and
was started on tamsulosin. He was initially treated with IV antibiotics which were later transitioned to oral antibiotics to complete a total 5-day course. His evaluated by speech and language pathology who felt there was no overt evidence of
aspiration. He did not require supplemental oxygen. His home metoprolol was discontinued due to persistent bradycardia. He was continued on his home Eliquis for anticoagulation in the setting of atrial fibrillation. However his Eliquis dose was
reduced to 2.5 mg twice daily considering age greater than 80 and weight less than 60 kg. His home losartan was continued but his hydralazine was discontinued to avoid hypotension. His blood pressure was well-controlled with losartan alone. He
would benefit from ongoing therapy at a custodial facility after hospital discharge which is being arranged. He will be discharged with his Noland catheter in place. He will need to follow-up with urology in the outpatient office for a
monitored voiding trial. He will also need follow-up with his primary care physician for ongoing management. At the time of hospital discharge he was medically stable.
Referrals:
Beltran Pink, [Family Provider]
Prescriptions:
New
tamsulosin 0.4 mg Capsule
0.4 mg PO DAILY 30 Days Qty: 30 0RF
furosemide 20 mg Tablet
20 mg PO DAILY 30 Days Qty: 30 0RF
Eliquis 2.5 mg Tablet
2.5 mg PO BID 30 Days Qty: 60 0RF
Continued
losartan 50 MG tablet
50 mg PO HS
atorvastatin 20 MG tablet
20 mg PO HS
quetiapine 25 mg Tablet
50 mg PO HSPRN PRN (Reason: sleep)
omeprazole 40 mg Capsule,Delayed Release(Dr/Ec)
40 mg PO DAILY
acetaminophen 500 mg Tablet
500 mg PO DAILYPRN PRN (Reason: earache)
Discontinued
Eliquis 5 MG tablet
5 mg PO BID
hydralazine 50 MG tablet
50 mg PO BID
metoprolol succinate 25 mg Tablet Extended Release 24 Hr
25 mg PO DAILY
Discharge Orders:
Discharge Patient (As Directed); Ordered 12/14/24
Ordered By: Sergio Olea
Discharge Date and Time
Print Language: FRISIAN
[2024-12-14 15:07] VITALS: BP 108/51
== END 2024-12-14 17:30 | DRG 193 ==
LOC: 3 WEST ACU 15:33
PROVIDERS: Nurse Practitioner Gerontology; ADMITTING PHYSICIAN Student in an Organized Health Care Education/Training Program; ATTENDING PHYSICIAN Internal Medicine; CONSULT PHYSICIAN Internal Medicine Cardiovascular Disease; CONSULT PHYSICIAN Specialist; EMERGENCY PHYSICIAN Emergency Medicine; FAMILY PHYSICIAN Family Medicine
DX: J18.9 Pneumonia, unspecified organism (principal); I50.31 Acute diastolic (congestive) heart failure; I48.21 Permanent atrial fibrillation; R64 Cachexia; E87.1 Hypo-osmolality and hyponatremia; I11.0 Hypertensive heart disease with heart failure; Z86.73 Personal history of transient ischemic attack (TIA), and cerebral infarction without residual deficits; I25.10 Atherosclerotic heart disease of native coronary artery without angina pectoris; Z95.1 Presence of aortocoronary bypass graft; K21.9 Gastro-esophageal reflux disease without esophagitis; Z79.01 Long term (current) use of anticoagulants; Z66 Do not resuscitate; E78.00 Pure hypercholesterolemia, unspecified; Z87.891 Personal history of nicotine dependence; Z79.899 Other long term (current) drug therapy; Z11.52 Encounter for screening for COVID-19
CPT/HCPCS: 71046; 80048; 80053; 80061; 81003; 81015; 83735; 83880; 84443; 84484; 85025; 85027; 87040; 87811; 92526; 92610; 93005; 93306; 96365; 97116; 97162; 99285